=== PATIENT | female | born 1965 | race Caucasian/White ===

== ENCOUNTER 2024-03-01 10:07 | Day surgery (SDC) | payer BC, OTHER ==
[2024-03-01 10:00] LABS: Absolute Lymphocytes (CBC) 2.5 K/uL (0.7-4.9); Absolute Monocytes 0.5 K/uL (0.1-1.3); Absolute Neutrophil 5.7 K/uL (1.8-8.0); Basophils % 0.5 % (0-1.3); Eosinophils % 0.5 % (0-4.4); Hematocrit 45.3 % (36.0-45.0); Lymphocytes % 28.9 % (15.3-44.8); MCH 30.9 pg (27.0-35.0); MCHC 33.1 g/dL (32.0-36.0); MCV 93.4 fL (80-100); MPV 9.7 fL (7.6-11.3); Monocytes % 5.4 % (3.3-12.3); Neutrophils % 64.7 % (41.7-73.7); Platelets 235 thou/uL (152-406); RBC Red Blood Cell Count 4.85 M/uL (3.86-4.86)
[2024-03-01 10:08] LABS: Anion Gap 10.4 mEq/L (5.0-15.0); Potassium 4.4 mEq/L (3.5-5.1)
--- NOTE | 2024-03-01 10:12 | RAD REPORT ---
EXAM DESCRIPTION: RAD - Chest Pa And Lat (2 Views) - 03/01/2024 9:48 am CLINICAL HISTORY: Pre op pending mass removal Chest pain. COMPARISON: CHEST PA AND LAT 2 VIEW dated 10/16/2011 FINDINGS: The lungs are clear. The heart is normal in size. No displaced fractures. IMPRESSION: No acute or concerning finding suspected. The USPSTF recommends annual screening for lung cancer with low-dose CT (LDCT) in adults aged 50 to 8 0 years who have a 20 pack-year smoking history and currently smoke or have quit within the past 15 y ears.
[2024-03-01] MEDS: NA CHLORIDE 0.9% 1,000 ML ONE ×2 (10:28→11:32)
[2024-03-01] MEDS: CEFAZOLIN SODIUM 1 GM/VIAL ONE (10:46)
[2024-03-01] MEDS: BUPIVACAINE 0.5% PF 10 ML VIAL ONE (11:08)
--- NOTE | 2024-03-01 11:17 | P.BOP ---
Preoperative diagnosis: suprapubic infected subQ mass cellulitis abscess , diabetes Postoperative diagnosis: same Primary procedure: Excisional biopsy suprapubic infected subQ mass with drainage abscess 4x4cm Estimated blood loss: <10cc Specimen: scarlett pus culture, mass Findings: scarlett pus, mass Anesthesia: General Complications: None Drain(s): Other (wet to dry NS) Transferred to: Recovery Room Condition: Good
--- NOTE | 2024-03-01 11:59 | OP ---
Date of Procedure: 03/01/2024 Surgeon: Norman Figueroa MD Preoperative Diagnoses: Infected suprapubic subcutaneous mass with cellulitis and abscess. Also jad tovar. Postoperative Diagnoses: Infected suprapubic subcutaneous mass with cellulitis and abscess. Also ammon ureña. Procedure: Excisional biopsy of infected suprapubic subcutaneous mass with drainage of an abscess ab out 4 x 4 cm. Complication: None. Estimated Blood Loss: Less than 10 cc. Specimen: Pus culture and mass. Findings: Patient has a complex abscess and this involves about 4 x 4 cm with a mass in the center. The cellulitis extends beyond that point to an area of about 12 to 15 cm. Those areas does not seem to have any fluctuance or pus beyond the point that I just described above of about 4 x 4 cm. Indication: This is a case of a 58-year-old patient who came to us with an expanding cellulitis of [facility] suprapubic area. She used to have a mass there and it instantly got infected, went to the primary doctor, was still expanding and this is in the area that we believe may get worse. She was advised the importance of drainage of an abscess. She wants the mass removed at the same time since it seems to be the culprit of this. So the benefits, alternatives, and risks of excisional biopsy of infecte d mass with drainage of an abscess fully explained, which include, but not limited to, infection, ble eding, damage to adjacent structures, anesthesia complication, nonhealing wound, UT, and even . She also understands this may not relieve any symptoms, she might need more than one surgical interv ention. She understood, signed a consent. The area of concern was marked by me and the patient in [facility] holding room. Description Of Procedure: Patient was brought to the operating room, placed in supine position. Ane sthesia was done without complication. Suprapubic area was prepped and draped in the usual sterile f ashion. Local anesthesia was applied after a time-out. Incision was made in that region. Mass was excised. The area was explored. It was an abscess with the mass about 4 x 4 cm. Loculations were e xplored, opened. Area was irrigated. Hemostasis was obtained. Culture was obtained at the beginnin g, injected local anesthetic and then the area was packed with dry dressing. Patient tolerated the p rocedure well. Patient was sent to Recovery in stable condition. Sponge counts and instrument count s were correct. HM/MODL Voice ID: [id number] Report ID: [id number]
--- NOTE | 2024-03-01 12:05 | DS ---
Diagnoses: Cellulitis of the suprapubic area, diabetes, infected mass, and abscess. Procedure: An excisional biopsy of infected subcutaneous mass with drainage of an abscess. Disposition: Home. Activity: As tolerated. No heavy lifting. Condition: Stable. Plan: Follow up in my office in 1 week. Call for appointment at [phone]. Normal saline daily. Mychal mcmahon already taking Bactrim. We are going to wait for the culture to see if something have to be ch anged. MASON/DUDLEY Voice ID: [id number] Report ID: [id number]
[2024-03-01] MEDS ORDERED: LIDOCAINE 2% MPF 5 ML VIAL ONE (12:38)
[2024-03-01] MEDS ORDERED: MIDAZOLAM HCL 2 MG/2 ML INJ ONE (12:38)
[2024-03-01] MEDS ORDERED: FENTANYL CITR 100 MCG/2 ML ONE (12:38)
[2024-03-01] MEDS ORDERED: KETOROLAC 30 MG/ML INJ ONE (12:38)
[2024-03-01] MEDS ORDERED: dexAMETHasone 10 MG/ML VIAL ONE (12:38)
[2024-03-01] MEDS ORDERED: propofoL 200 MG/20 ML VIAL IV ONE (12:38)
[2024-03-01] MEDS ORDERED: ONDANSETRON 4 MG/2 ML VIAL ONE (12:38)
[2024-03-01 13:13] VITALS: BP 121/77; TEMP 97.2; O2SAT 100
== END 2024-03-01 13:00 | disposition home or self-care (01) ==
LOC: OR 10:07
PROVIDERS: ATTEND Surgery
PROC: 0JB80ZZ Excision of Abdomen Subcutaneous Tissue and Fascia, Open Approach (ICD-10-PCS; principal; 2024-03-01 11:00)
DX: L72.0 Epidermal cyst (principal); L03.319 Cellulitis of trunk, unspecified; L02.211 Cutaneous abscess of abdominal wall; E11.9 Type 2 diabetes mellitus without complications
CPT/HCPCS: 93005; 87070; 85025; 80048; 36415; 87205; 82947; 88304; 87075; 71046; 11404; J2704; J2001; J2250; J3010; J1100; J2405; J7030 ×2; J0690